=== PATIENT | male | born 2000 | race Caucasian/White ===

== ENCOUNTER 2018-02-08 02:30 | Emergency (ER) | payer OTHER ==
[~2018-02-08] VITALS: Ht 180.3 cm; Wt 78.0 kg
[~2018-02-08 02:30] MED LIST: CNC/54 PO
[2018-02-08 02:36] VITALS: TEMP 36.5; Ht 180.3 cm; Wt 78.0 kg
[2018-02-08 03:32] LABS: CALCIUM 8.7 mg/dl (8.5-10.1); CREATININE 0.95 mg/dl (0.60-1.40); POTASSIUM 3.4 mmol/L (3.5-5.1)
[2018-02-08] MEDS ORDERED: XYLOCAINE 1%/SOD BICARB 20 ML VIAL INFIL ONE (06:15)
[2018-02-08 07:29] VITALS: BP 164/86; PULSE 105; O2SAT 98
--- NOTE | 2018-02-08 07:36 | EMERGENCY ROOM VISIT NOTE ---
ED Visit Note Patient was seen and evaluated by Dr. Drake. I was asked to perform primary wound closure of the R 3rd digit PIP laceration measuring 1.5cm in length. Risks and benefits of performing primary wound closure versus no repair were discussed with the patient who verbalizes understanding. Verbal consent was obtained prior to performing the procedure. 3 cc of 1% buffered lidocaine was used to perform local anesthetization of the right third digit laceration. The wound was cleansed and prepped in the typical sterile fashion utilizing normal saline and Betadine. The wound was sterilely draped. Once proper anesthetization was established, the wound was further examined and revealed deeper involvement but no evidence of tendon injury or joint capsule disruption or bony disruption. Small foreign body debris was removed from the wound. The wound was copiously irrigated with normal saline and Betadine. The wound was closed using 5 simple, 5-0 nylon sutures with the wound edges being well approximated. Patient tolerated the procedure well. No complications were met. The wound was cleansed and dressed with a Bacitracin dressing. A metal splint was applied to the finger for comfort. Patient educated on worrisome symptoms for return visit to the Emergency Department. Patient discharged to home in good condition.
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
== END 2018-02-08 08:22 | disposition home or self-care (01) ==
LOC: EDBD 02:30 → C.EDB 02:32
DX: S61.411A Laceration without foreign body of right hand, initial encounter (principal); T51.91XA Toxic effect of unspecified alcohol, accidental (unintentional), initial encounter; Y04.0XXA Assault by unarmed brawl or fight, initial encounter; Y93.9 Activity, unspecified; Y99.8 Other external cause status; Y92.199 Unspecified place in other specified residential institution as the place of occurrence of the external cause